=== PATIENT | male | born 1960 | race Caucasian/White ===

== ENCOUNTER 2017-04-26 12:27 | Observation (INO) ==
[2017-04-26] MEDS ORDERED: NITROGLYCERIN SL PRN (12:47)
[2017-04-26] MEDS ORDERED: TYLENOL PO PRN (12:47)
[2017-04-26] MEDS ORDERED: ZOFRAN IV PRN (12:47)
[2017-04-26] MEDS ORDERED: SALINE LOCK IV FLUID XX ONE (12:47)
[2017-04-26] MEDS ORDERED: ASPIRIN PO STA (12:51)
--- NOTE | 2017-04-26 14:16 | Diag Imaging Result Doc PS360 ---
CHEST-2 VIEWS - 04/26/2017 INDICATION: Chest Pain TECHNIQUE: COMPARISON: None FINDINGS: The lungs are normally expanded and clear. Heart size and mediastinal contours are normal. No pneumothorax or pleural effusion. IMPRESSION: Negative exam. Electronically signed by Twin Villalba 04/26/2017 2:14 PM
[2017-04-26 15:56] LABS: MANUAL DIFF NEEDED? NO
[2017-04-26 16:01] LABS: BASO% 0.6 % (0.0-0.8); EOS# 0.53 X1000 (0.0-0.7); EOS% 6.1 % (0.0-10.0); HEMATOCRIT 39.3 % (42.0-52.0); HEMOGLOBIN 13.7 g/dL (14.0-18.0); IMM GRAN# 0.02 X1000 (0.0-0.04); IMM GRAN% 0.2 % (0.0-0.5); LYMPH# 1.93 X1000 (1.2-3.4); LYMPH% 22.2 % (20.5-51.1); MCH 30.9 PG (27-31); MCHC 34.9 g/dL (33-37); MCV 88.7 FL (81-99); MONO# 0.57 X1000 (0.11-0.59); MONO% 6.6 % (1.7-9.3); MPV 9.6 FL (7.4-10.4); NEUT% 64.3 % (42.2-75.2); PLT 245 X1000 (130-400); RBC 4.43 XMIL (4.7-6.1)
[2017-04-26 16:11] LABS: INR 1.04; PTT 35.7 Seconds (22.0-36.0)
[2017-04-26 16:18] LABS: HEMOGLOBIN A1C 5.8 % (4.8-6.0)
[2017-04-26 16:32] LABS: AGAP 11; ALBUMIN 4.3 g/dL (3.5-5.0); ALKALINE PHOSPHATASE 44 U/L (32-122); BUN 17 mg/dL (8-22); CALCIUM 9.8 mg/dL (8.8-10.2); CHLORIDE 99 mmol/L (98-107); COSMO 279; GOT 19 U/L (10-34); GPT 25 U/L (10-44); POTASSIUM 4.6 mmol/L (3.5-5.1); SODIUM 139 mmol/L (136-145); TCO2 29 mmol/L (25-35); TOTAL BILIRUBIN 0.53 mg/dL (0.20-1.00); TOTAL PROTEIN 7.5 g/dL (6.3-8.3)
--- NOTE | 2017-04-26 17:31 | CONSULTATION ---
DATE OF CONSULTATION: 04/26/2017 CONSULTATION REQUESTED BY: Services of Dr. Kathleen. REASON FOR CONSULTATION: Chest pain. HISTORY OF PRESENT ILLNESS: Mr. Dalton is a 57-year-old male who presented to Dr. Kathleen's office complaining of 7 days of sudden onset of pain that started at 4 o'clock in the morning on the day of initial occurrence. He was awakened with pain that was stabbing like, sharp, moderate severity. This went on for hours, eventually subsided to some extent. The next day he was able to run about 4 miles as he usually does without any difficulty. In fact, he felt better. Then on Wednesday, this past week, he started having again bouts of sharp pain in the left chest and the left shoulder blade, somewhat pleuritic in nature. He also noted some discomfort on the right side of his jaw. He felt a slight tightness. With all those symptoms, he really got worried and decided to go to Dr. Kathleen's office today, and Dr. Kathleen in turn recommended admission to the hospital for evaluation. The patient has a remote history of one episode of chest discomfort a few years ago that warranted hospital evaluation with a stress test. Otherwise, he has been basically very healthy. PAST MEDICAL HISTORY: He has no medical history of any significance. MEDICATIONS: He is not taking any [id number] medication or any active prescription medication. FAMILY HISTORY: Both parents of cancer, father at the age of 83, mother at the age of 82. SOCIAL HISTORY: He is not a smoker. 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 His job is sedentary, however, he exercises periodically. He is very active at home. In fact, 2 days before the onset of chest pain, he was lifting heavy weights more intensely that average. REVIEW OF SYSTEMS: He also says that about 5 days prior to this admission he was bitten by a tick. He says that he had developed some low-grade temperature and some sweats within the past 24 hours. He says that he has been bitten by ticks many times in the past without any consequence. He has 2 dogs at home. He does not smoke, does not drink. He has 5 children, the 2 youngest, ages 13 and 17, live with him and his . No other noticeable finding on review of systems. PHYSICAL EXAMINATION: Vital signs: Today blood pressure is 138/83, pulse 58, temperature 97.8, respirations 18. General: He is awake, alert, oriented, in no distress. HEENT: Normal. Chest: Clear to auscultation and percussion. Cardiac: Heart sounds are regular and rhythmic. I do not hear a gallop or murmur. Abdomen: Nontender, soft. No masses or hepatomegaly. Extremities: Show good pulses. No edema. Neurologic: Moves four extremities. Cranial nerves are normal. Skin: Shows no evidence of any rash. LABORATORY DATA: His blood work today showed a hemoglobin of 13.7, white count of 8690. His PT and PTT are normal. Sodium 139, potassium 4.6, BUN 17, creatinine 1.0. Total cholesterol 144, triglycerides 91, LDL 85, HDL 56. IMPRESSION: 1. Patient presenting with chest pain that is really very atypical. He does not have any laboratory or electrocardiographic evidence of acute ischemia. His ECG that was done at Dr. Kathleen's office today at 1128 hours shows incomplete right bundle branch block with a nonspecific T. 2. Recent tick bite. RECOMMENDATIONS: I would suggest to do a treadmill exercise myocardial perfusion study and a 2D echocardiogram. Further advice will be forthcoming. We will check EKG in the morning and also another set of troponin in the morning. cc: MD Josh Orozco MD
--- NOTE | 2017-04-27 03:48 | HISTORY AND PHYSICAL ---
CHIEF COMPLAINT: Chest pain, left subscapular pain. HISTORY OF PRESENT ILLNESS: The patient is a 57-year-old white male followed in my medical practice, who presents complaining of some left subscapular pain. It has been occurring daily over the past 7 days. It has been waking him up a lot of mornings. He has had associated nausea with it. Sometimes, the pain radiates to the right jaw. Also, some pain, mild, diffusely across the anterior chest. Most of this is at rest, but occasionally with activity. He felt like he had a low-grade fever last night, up to 100.1 on testing. He notes he had a tick bite about 6 days ago on his left lateral low abdomen area. He has been followed up for some right hip pain in the last 2 months per Orthopedics. He says they think it is his back. MEDICATIONS PRIOR TO ADMISSION: 1. Crestor 20 mg half p.o. at bedtime. 2. Aspirin 81 mg daily. 3. Vitamin C 1000 mg daily. 4. Coenzyme Q10 one p.o. daily. 5. Over the counter iron daily. 6. Ferrous sulfate. ALLERGIES: NKDA. PAST MEDICAL HISTORY: 1. Dyslipidemia. 2. Chronic microhematuria, with negative workup in 2005. 3. History of right bundle branch block, dating back to 2005. PAST SURGICAL HISTORY: Ewing tooth extraction. FAMILY HISTORY: Notable for hypertension in brother, mother, father. No strokes in the family. Grandmother with adult-onset diabetes mellitus. No myocardial infarctions in the family. Grandfather with stomach cancer at age 60. JRA in his sister. Father with melanoma and pancreatic cancer. SOCIAL HISTORY: The patient lives in [place]. He is . He has 5 children. 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 He is a nonsmoker. Rare alcohol use. REVIEW OF SYSTEMS: Notable for he wears glasses. Followed at [facility] for that. Last colonoscopy in November 2016, which showed 4 sessile polyps. Otherwise, ROS completely is negative. PHYSICAL EXAMINATION: VITAL SIGNS: Afebrile. Pulse 58, respirations 18, blood pressure 138/83. O2 saturation in room air 99-100%. Weight 215 pounds. Height 5 feet 10 inches tall. GENERAL: Well-developed, well-nourished white male, in no acute distress. He denies chest pain, currently. SKIN: Warm and dry. No rashes. HEENT: NC/AT, DANIEL, EOMI. Sclerae clear. OP: No redness. NECK: No LA, TMG, JVD, bruits. CARDIOVASCULAR: RRR, without murmur. LUNGS: CTA. CHEST WALL: Nontender. Subscapular area nontender. ABDOMEN: Soft, NT, ND. No mass. No HSM. GENITOURINARY: Deferred. RECTAL: Deferred. EXTREMITIES: No calf tenderness, cords, or edema. Peripheral pulses 2+. NEUROLOGIC: Cranial nerves 2-12 are intact. Nonfocal. EKG shows sinus bradycardia, with a heart rate of 54. [id number] ST changes, nonspecific. ASSESSMENT: 1. Chest pain. 2. Dyslipidemia. 3. Chronic microhematuria, with previously negative workup. PLAN: Will admit the patient. Obtain serial cardiac enzymes, troponin levels. We will give him aspirin therapy and will ask Dr. Colbert to see the patient in consultation. We will check chest x-ray as well. cc: Josh Kathleen MD
--- NOTE | 2017-04-27 06:23 | EKG Report ---
Test Performed on : 04/27/2017 05:22:43 AM Test Reason : chest pain atypical Blood Pressure : / mmHG Vent. Rate : 061 BPM Atrial Rate : 061 BPM P-R Int : 170 ms QRS Dur : 112 ms QT Int : 418 ms P-R-T Axes : 039 042 041 degrees QTc Int : 420 ms Normal sinus rhythm. Incomplete right bundle branch block Nonspecific ST and T wave abnormality Abnormal ECG No previous ECGs available Confirmed by Austin SAHA, Curtis Diop ([id number]) on 04/28/2017 2:55:29 PM
[2017-04-27] MEDS ORDERED: PRILOSEC PO SCH (07:00)
[2017-04-27] MEDS ORDERED: ASPIRIN PO SCH (09:00)
--- NOTE | 2017-04-27 09:43 | PROGRESS NOTE ---
DATE: 04/27/2017 SUBJECTIVE: No chest pains overnight. He does recall lifting a riding bit tapper about 2 days prior to onset of symptoms. OBJECTIVE: Vital signs: Afebrile. Vital signs stable. CV: RRR without murmur. Lungs: CTA. Extremities: No calf tenderness, cords or edema. LABS: Cardiac enzymes negative x3. LDL 85, triglycerides 91, total cholesterol 144, HDL 56. ASSESSMENT: 1. Chest pain. 2. Dyslipidemia, doing well on Crestor. 3. Chronic microhematuria with previously negative workup. PLAN: Patient has had his echocardiogram and is going for his nuclear stress test this morning. We will await studies. Chest x-ray is negative. cc: Josh Kathleen MD
--- NOTE | 2017-04-27 13:46 | PROGRESS NOTE ---
DATE: 04/27/2017 CHIEF COMPLAINT: Chest discomfort. SUBJECTIVE: Mr. Dalton is doing fine. He has not had any more chest pain. OBJECTIVE: Vital signs: Blood pressure is 148/62, temperature is 98.4, pulse 74, respirations 18. General: He is awake, alert, oriented, in no distress. HEENT: Unremarkable. Chest: Clear to auscultation and percussion. Cardiac: Heart sounds regular and rhythmic, no gallop, no murmur. Abdomen: Nontender, soft, no masses, no hepatomegaly. Extremities: Good pulses, no edema. Neurological: He moves 4 extremities, follows commands. BLOOD WORK FROM YESTERDAY: LDL is 85, total cholesterol 44, HDL 56. Several troponins were done, negative. ProBNP level is not done. Hemoglobin A1c is 5.8. Sodium, potassium, BUN, creatinine all normal. ECHOCARDIOGRAM: The 2-D echocardiogram done today is normal. TREADMILL EXERCISE STRESS TEST WITH MYOCARDIAL PERFUSION IMAGING: Normal with normal ejection fraction. IMPRESSION: 1. Patient presenting with chest pain that was deemed to be atypical. His noninvasive cardiac testing is normal. 2. Abnormal EKG which is a minor nonspecific abnormality, incomplete right bundle. RECOMMENDATION: At this point in time, I do not find any indication that this patient has active heart disease. The abnormality on his ECG is probably chronic. The patient may be discharged home at the convenience of Dr. Kathleen. cc: MD oJsh Orozco MD
--- NOTE | 2017-04-27 15:17 | Diag Imaging Result Document ---
PROCEDURE NAME: MYOCARDIAL PERF SCAN, STR/REST - 04/27/2017 SUMMARY: The patient was administered 14.7 millicuries of technetium-99m sestamibi, after which resting cardiac images were obtained. Patient was subsequently exercised on treadmill according to a David protocol and exercised for a total of 12 minutes, achieving a maximum workload of stage IV. With exercise, the heart increased from 65 beats per minute to 153 beats per minute, representing 92% of maximum age predicted heart rate. The blood pressure increased from 105/61 to 170/70. The patient reached a maximum workload of 13.7 METs. With exercise, the patient denied chest discomfort. At peak exercise, the patient was administered 43.2 millicuries of technetium- 99m sestamibi, after which gated stress cardiac images were obtained. Baseline ECG demonstrated sinus bradycardia and diffuse ST elevation, probably due to normal variant early repolarization. With exercise, there were no diagnostic ST-segment changes. SPECT images were reconstructed in the short, horizontal, long, and vertical long axis. Review of these images demonstrated no scintigraphic evidence of inducible myocardial ischemia or infarct. Gated images demonstrated a calculated left ventricular ejection fraction of 68% with symmetrical wall motion/thickening. CONCLUSIONS: 1. Good aerobic capacity. Target heart rate achieved. 2. Clinically negative for chest pain. 3. Electrocardiographically negative for exercise-induced myocardial ischemia. 4. Exercise sestamibi images demonstrate no scintigraphic evidence of inducible myocardial ischemia. Normal left ventricular systolic function demonstrated. cc: MD Tank Aguilar MD
--- NOTE | 2017-04-27 15:28 | ECHO REPORT ---
ORDER DATE: 04/27/2017 MEASUREMENTS: 1. Left ventricular end-diastolic diameter 4.6. 2. End systolic diameter 2.8. 3. Septal thickness 1.2. 4. Posterioro wall thickness 1.2. 5. Left atrium 3.8. 6. Aortic root 3.5 SUMMARY: 1. Adequate quality study. 2. Aortic valve is trileaflet and opens normally on 2-dimensional images. Peak gradient across the aortic valve is 10 mmHg. Mitral, tricuspid, and pulmonic valves are without structural abnormality with trace mitral regurgitation, trace tricuspid regurgitation, and trace pulmonic insufficiency. Aortic root is normal in size. 3. Normal left ventricular dimensions suggested on 2-dimensional images. Estimated left ejection fraction appears to be greater than 65%. No regional wall motion abnormalities are evident. Left atrium, right atrium, right ventricle are normal in size with normal right ventricular systolic function. 4. No pericardial effusion. 5. Appearance of inferior vena cava suggests normal central venous pressure. 6. Sinus rhythm. cc: MD Tank Aguilar MD Stephen W. Harbin, MD
[2017-04-27 15:58] VITALS: BP 123/67
== END 2017-04-27 18:44 | disposition home or self-care (01) ==
LOC: 3N 14:29
PROVIDERS: ADMIT Family Medicine; ATTEND Family Medicine